=== PATIENT | male | born 1980 | race Caucasian/White ===

== ENCOUNTER 2021-11-26 16:11 | Inpatient (IN) ==
[2021-11-26] MEDS ORDERED: *HR* Metoprolol 5 MG/5 ML VIAL IVP ONE (19:34)
[2021-11-26] MEDS ORDERED: Ondansetron 4 MG/2 ML VIAL IVP PRN (19:36)
[2021-11-26] MEDS ORDERED: Naloxone 0.4 MG/ML INJ IVP PRN (19:36)
[2021-11-26] MEDS ORDERED: Nitroglycerin 0.4 MG TAB.SUBL SL PRN (19:41)
[2021-11-26] MEDS ORDERED: *HR* Heparin 5,000 UNIT/ML VIAL IVP PRN ×2 (19:42)
[2021-11-26 20:14] LABS: Hematocrit 43.5 % (37.5-50.1); Hemoglobin 14.6 g/dL (12.9-16.9); Mean Corpuscular HGB Conc 33.6 g/dL (31.6-35.5); Mean Corpuscular Volume 92.4 fL (83.0-100.0); Mean Platelet Volume 10.8 fL (9.4-12.4); Platelet Count 159 K/mcL (140-400); Red Blood Count 4.71 M/mcL (4.19-5.50); White Blood Count 6.2 K/mcL (4.3-11.1)
[2021-11-26 20:24] LABS: INR 1.2; Prothrombin Time 13.1 Seconds (9.4-12.1)
[2021-11-26 20:27] LABS: Activated Partial Thrombo Time 37.9 Seconds (26.0-36.0)
[2021-11-26] MEDS: Heparin 25,000UNIT/250ML 1/2NS 25,000 UNIT/250 ML IV.SOLN IVC SCH (20:56)
[2021-11-27 03:46] LABS: Hematocrit 42.1 % (37.5-50.1); Hemoglobin 14.4 g/dL (12.9-16.9); Mean Corpuscular HGB Conc 34.2 g/dL (31.6-35.5); Mean Corpuscular Hemoglobin 31.4 pg (28.0-33.3); Mean Corpuscular Volume 91.7 fL (83.0-100.0); Mean Platelet Volume 10.9 fL (9.4-12.4); Platelet Count 151 K/mcL (140-400); Red Blood Count 4.59 M/mcL (4.19-5.50); White Blood Count 8.4 K/mcL (4.3-11.1)
[2021-11-27 03:55] LABS: INR 1.2
[2021-11-27 03:59] LABS: Heparin anti-factor XA UFH 1.13 IU/mL (0.30-0.70)
[2021-11-27 04:06] LABS: Chol/HDL Ratio 5.3 (0-4.9)
[2021-11-27 04:59] LABS: Activated Partial Thrombo Time > 360.0 Seconds (26.0-36.0)
[2021-11-27] MEDS: Heparin 25,000UNIT/250ML 1/2NS 25,000 UNIT/250 ML IV.SOLN IVC SCH (06:38)
[2021-11-27] MEDS: Aspirin 81 MG TAB.CHEW PO SCH (07:48)
[2021-11-27] MEDS ORDERED: Perflutren Lipid Microsphere 1.3 ML in 0.9 % Sodium Chloride 8.7 ML IVP PRN (08:11)
[2021-11-27 09:27] LABS: Alanine Aminotransferase 36 Units/L (7-52); Albumin/Globulin Ratio 1.1 (1.1-2.2); Alkaline Phosphatase 76 Units/L (34-104); Aspartate Amino Transferase 68 Units/L (13-39); BUN/Creatinine Ratio 11 (6-26); Bilirubin,Total 0.5 mg/dL (0.3-1.0); Blood Urea Nitrogen 12 mg/dL (6-20); Carbon Dioxide 25 mEq/L (23-29); Chloride 106 mEq/L (98-107); Globulin 3.8 g/dL (2.4-3.5); Glucose 104 mg/dL (70-105); Osmolality,Calculated 282 (280-300); Sodium 136 mEq/L (136-145); Total Protein 7.8 g/dL (6.4-8.9); Troponin I 14.17 ng/mL (< 0.04); eGFR For African Americans > 60 (> 60); eGFR For Non-African Americans > 60 (> 60)
[2021-11-27] MEDS: Metoprolol XL (24 HR) Succ 25 MG TAB.ER.24H PO SCH (10:14)
[2021-11-27] MEDS ORDERED: Heparin 1,000 UNITS/500 mL 500 ML ONE (13:01)
[2021-11-27] MEDS ORDERED: *HR* Heparin 10,000 UNIT/10 ML VIAL ONE ×2 (13:01→13:59)
[2021-11-27] MEDS ORDERED: ISOVUE-370 200 ML INFUS..BTL ONE (13:01)
[2021-11-27] MEDS ORDERED: Nitroglycerin 1,000 MCG/5 ML VIAL IV ONE (13:02)
[2021-11-27] MEDS ORDERED: 0.9 % Sodium Chloride 2,000 ML ONE (13:02)
[2021-11-27] MEDS ORDERED: *HR* Midazolam HCl 2 MG/2 ML VIAL ONE ×2 (13:19→13:39)
[2021-11-27] MEDS ORDERED: *HR* FentaNYL (PF) 100 MCG/2 ML VIAL ONE (13:19)
[2021-11-27] MEDS ORDERED: *HR* Ticagrelor 90 MG TABLET ONE (14:19)
[2021-11-27] MEDS: *HR* Ticagrelor 90 MG TABLET PO SCH (19:45)
[2021-11-28 02:22] LABS: Basophils % 0.3 %; Eosinophils # 0.1 K/mcL (0.0-0.6); Eosinophils % 0.8 %; Hematocrit 42.5 % (37.5-50.1); Hemoglobin 14.4 g/dL (12.9-16.9); Immature Granulocytes % 0.1 % (0-4); Lymphocytes # 1.5 K/mcL (0.6-4.6); Lymphocytes % 20.9 %; Mean Corpuscular HGB Conc 33.9 g/dL (31.6-35.5); Mean Corpuscular Hemoglobin 31.2 pg (28.0-33.3); Mean Corpuscular Volume 92.2 fL (83.0-100.0); Mean Platelet Volume 10.8 fL (9.4-12.4); Monocytes # 0.5 K/mcL (0.0-1.3); Monocytes % 6.8 %; Neutrophils # 5.2 K/mcL (1.6-8.9); Platelet Count 164 K/mcL (140-400); Red Blood Count 4.61 M/mcL (4.19-5.50); Segmented Neutrophils % 71.1 %; White Blood Count 7.3 K/mcL (4.3-11.1)
[2021-11-28 02:28] LABS: BUN/Creatinine Ratio 16 (6-26); Blood Urea Nitrogen 15 mg/dL (6-20); Calcium 8.9 mg/dL (8.6-10.3); Carbon Dioxide 21 mEq/L (23-29); Chloride 104 mEq/L (98-107); Glucose 126 mg/dL (70-105); Osmolality,Calculated 280 (280-300); Potassium 3.7 mEq/L (3.5-5.1); Sodium 134 mEq/L (136-145); eGFR For African Americans > 60 (> 60); eGFR For Non-African Americans > 60 (> 60)
[2021-11-28 07:50] VITALS: BP 117/74; PULSE 91; TEMP 98.6; O2SAT 95
[2021-11-28] MEDS: *HR* Ticagrelor 90 MG TABLET PO SCH (08:56)
[2021-11-28] MEDS: Metoprolol XL (24 HR) Succ 25 MG TAB.ER.24H PO SCH (08:56)
[2021-11-28] MEDS: Aspirin 81 MG TAB.CHEW PO SCH (08:56)
[2021-11-28] MEDS ORDERED: lisinopriL 5 MG TABLET PO SCH (09:00)
== END 2021-11-28 17:53 | disposition home or self-care (01) | DRG 174 ==
LOC: 2NENU → SUATTDRO 18:51
PROVIDERS: ADMIT Internal Medicine; ATTEND General Practice